=== PATIENT | male | born 1990 | race Caucasian/White ===

== ENCOUNTER 2018-10-13 19:31 | Emergency (ER) | payer BC ==
[~2018-10-13] VITALS: Ht 185.4 cm; Wt 72.0 kg
[~2018-10-13 19:31] MED LIST: CEPH500C57 OR; LORTAB 5 OR; NO MEDS; ULTRAM50 M1 PO
[2018-10-13] MEDS ORDERED: CIPROFLOXACN0.3 % OD (20:24)
[2018-10-13 20:31] VITALS: BP 118/78
== END 2018-10-13 20:31 | disposition home or self-care (01) | DRG 866 ==
LOC: ED 19:31
DX: B34.9 Viral infection, unspecified (principal); H10.9 Unspecified conjunctivitis; J30.2 Other seasonal allergic rhinitis

== ENCOUNTER 2021-07-15 03:18 | Emergency (ER) | payer BC ==
[~2021-07-15] VITALS: Ht 188 cm; Wt 82.0 kg
[~2021-07-15 03:18] MED LIST changes: +CIPROFLOXACN0.3 % OD
[2021-07-15] MEDS ORDERED: SILVADENE1 % EX (03:35)
[2021-07-15] MEDS ORDERED: LORTAB5 PO (03:35)
[2021-07-15] MEDS ORDERED: TORADOL PO (03:35)
[2021-07-15 03:55] VITALS: BP 113/64
== END 2021-07-15 04:00 | disposition home or self-care (01) | DRG 935 ==
LOC: ED 03:18
PROC: 2W2FX4Z Dressing of Left Hand using Bandage (ICD-10-PCS; principal; 2021-07-15)
DX: T23.202A Burn of second degree of left hand, unspecified site, initial encounter (principal); J45.909 Unspecified asthma, uncomplicated; X04.XXXA Exposure to ignition of highly flammable material, initial encounter; Y93.89 Activity, other specified; Y92.007 Garden or yard of unspecified non-institutional (private) residence as the place of occurrence of the external cause